=== PATIENT | female | born 1950 | race Caucasian/White ===

== ENCOUNTER 2024-04-07 13:14 | Outpatient (CLI) | payer MEDICARE, BC ==
[2024-04-07 14:13] LABS: #Basophils 0.01 10x3/uL (0.0-0.2); #Eosinphils 0.12 10x3/uL (0.0-0.5); #Monocytes 0.34 10x3/uL (0.0-1.1); #Neutrophils 3.53 10x3/uL (1.5-8.4); %Basophils 0.2 % (0.0-2.0); %Eosinophils 2.2 % (0.0-6.0); %Lymphocytes 25.9 % (18.0-47.0); %Monocytes 6.3 % (0.0-10.0); %Neutrophils 65.2 % (40.0-75.0); Hematocrit 38.7 % (34.9-44.5); Mean Corpuscular HGB CONC 36.2 g/dL (32.0-36.0); Mean Corpuscular Hemoglobin 32.8 pg (27.0-33.0); Mean Corpuscular Volume 90.6 fL (81.6-98.3); Mean Platelet Volume 8.5 fL (7.4-10.4); Platelet Count 248 10x3/uL (150-450); RBC Distribution Width 12.7 % (11.5-14.5); Red Blood Cell (RBC) Count 4.27 10x6/uL (3.90-5.03); White Blood Cell (WBC) Count 5.4 10x3/uL (3.5-10.5)
[2024-04-07 14:21] LABS: Anion Gap 14 mmol/L (10-20); BUN (Urea Nitrogen) 17 mg/dL (9.8-20.1); Calc. Creatinine Clearance 0 mL/min (70-130); Calcium 9.5 mg/dL (7.8-10.44); Carbon Dioxide 23 mmol/L (23-31); Chloride 106 mmol/L (98-107); Estimated GFR 78; Glucose 96 mg/dL (83-110); Potassium 4.8 mmol/L (3.5-5.1); Sodium 138 mmol/L (136-145)
== END 2024-04-07 13:15 | disposition home or self-care (01) ==
LOC: LABBT 13:14
PROVIDERS: ATTEND Orthopaedic Surgery
DX: Z01.818 Encounter for other preprocedural examination (principal); M75.121 Complete rotator cuff tear or rupture of right shoulder, not specified as traumatic
CPT/HCPCS: 80048; 85025; 93005; 93010

== ENCOUNTER 2024-04-12 05:37 | Observation (INO) | payer MEDICARE, BC ==
[2024-04-07 13:35] VITALS: BMI 27.4
[2024-04-12] MEDS ORDERED: Sodium Chloride 0.9% 100 ML ONE ×2 (06:29→06:53)
[2024-04-12] MEDS ORDERED: Tranexamic Acid 1,000 MG/10 ML VIAL ONE (06:29)
[2024-04-12] MEDS ORDERED: Vancomycin 1 GM/200 ML (FROZEN) BAG ONE (06:30)
[2024-04-12] MEDS ORDERED: fentaNYL 50 mcg/mL 1 mL Vial ONE (06:39)
[2024-04-12] MEDS ORDERED: Scopolamine 1 mg/72 hour Patch ONE (06:40)
[2024-04-12] MEDS ORDERED: Midazolam HCl 2 mg/2 ml Vial ONE (06:40)
[2024-04-12] MEDS ORDERED: Bupivacaine PF 0.5% 30 ML VIAL ONE (06:45)
[2024-04-12] MEDS ORDERED: Lidocaine 1% (PF) 30 ML VIAL ONE (06:45)
[2024-04-12] MEDS ORDERED: CEFAZOLIN 2 GM VIAL ONE (06:53)
[2024-04-12] MEDS ORDERED: Ondansetron PF 4 MG/2 ML Vial ONE (07:40)
[2024-04-12] MEDS ORDERED: Lidocaine 1% PF 5 ML VIAL ONE (07:40)
[2024-04-12] MEDS ORDERED: Phenylephrine 10 MG/ML VIAL ONE (07:40)
[2024-04-12] MEDS ORDERED: Rocuronium Bromide 10 MG/ML (10ML VIAL) ONE (07:40)
[2024-04-12] MEDS ORDERED: Dexamethasone 20 MG/5 ML VIAL ONE (07:40)
[2024-04-12] MEDS ORDERED: PROPOFOL 20 ML ONE (07:40)
[2024-04-12] MEDS ORDERED: fentaNYL PF 100 MCG/2 ML SYRINGE ONE ×2 (07:41→13:08)
[2024-04-12] MEDS ORDERED: ePHEDrine Sulfate 50 MG/10 ML VIAL ONE (08:05)
[2024-04-12] MEDS ORDERED: Glycopyrrolate 0.2 MG/ML 5 ML SYRINGE ONE (08:12)
[2024-04-12] MEDS ORDERED: NEOSTIGMINE 3 MG/3 ML SYRINGE ONE (09:11)
[2024-04-12] MEDS ORDERED: Bupivacaine HCl 0.5%/Epinephrine 1:200,000/PF 30 ml Vial ONE (09:19)
[2024-04-12] MEDS ORDERED: Promethazine HCl 25 MG/ML VIAL IM PRN ×2 (09:56→10:00)
[2024-04-12] MEDS ORDERED: Ondansetron HCl/PF 4 MG/2 ML Vial IVP PRN (09:56)
[2024-04-12] MEDS ORDERED: fentaNYL 50 mcg/mL 1 mL Vial SLOW IVP PRN (09:57)
[2024-04-12] MEDS ORDERED: Zolpidem Tartrate 5 MG TAB PO PRN ×2 (10:00→11:16)
[2024-04-12] MEDS ORDERED: Ondansetron PF 4 MG/2 ML Vial IVP PRN ×2 (10:00→11:16)
[2024-04-12] MEDS ORDERED: Ropivacaine 0.2% 550 ML 550 ML NERVE BLCK SCH (10:00)
[2024-04-12] MEDS ORDERED: Milk Of Magnesia 30 ML UDCUP PO PRN (11:16)
[2024-04-12] MEDS ORDERED: Ondansetron ODT 4 MG TAB PO PRN (11:16)
[2024-04-12] MEDS ORDERED: Bisacodyl 10 MG SUPP PR PRN (11:16)
[2024-04-12] MEDS ORDERED: Methocarbamol 500 MG TAB PO PRN (11:16)
[2024-04-12] MEDS ORDERED: Acetaminophen 325 MG TAB PO PRN (11:16)
[2024-04-12] MEDS ORDERED: diphenhydrAMINE 50 MG CAP PO PRN (11:16)
[2024-04-12] MEDS: Famotidine 20 MG TAB PO SCH ×2 (12:33→20:40)
[2024-04-12] MEDS: Sodium Chloride 0.9% 1,000 ML IV SCH (12:34)
[2024-04-12] MEDS ORDERED: Calcium Chloride 1 GM/10 ML Abboject SYRINGE ONE (15:01)
[2024-04-12] MEDS ORDERED: PHENYLEPHRINE-NS 100 MCG/ML 10 ML SYRINGE ONE (15:33)
[2024-04-12] MEDS: CEFAZOLIN 2 GM in Sodium Chloride 0.9% 100 ML IVPB SCH (15:35)
[2024-04-12] MEDS: Naproxen 500 MG TAB PO SCH (20:36)
[2024-04-12] MEDS: traZODone HCl 50 MG TAB PO SCH (20:36)
[2024-04-12] MEDS: Magnesium Oxide 250 MG TAB PO SCH (20:36)
[2024-04-12] MEDS: DULoxetine 30 MG CAP PO SCH (20:39)
[2024-04-13] MEDS: chlordiazePOXIDE HCl 5 MG CAP PO SCH (08:55)
[2024-04-13] MEDS ORDERED: DULoxetine 30 MG CAP PO SCH (09:00)
[2024-04-13 12:06] VITALS: BP 129/88; TEMP 98
== END 2024-04-13 11:45 | disposition home or self-care (01) ==
LOC: SDC 05:37 → SURG A 11:40
PROVIDERS: ADMIT Orthopaedic Surgery; ATTEND Orthopaedic Surgery
PROC: 0RRJ0JZ Replacement of Right Shoulder Joint with Synthetic Substitute, Open Approach (ICD-10-PCS; principal; 2024-04-12)
PROC: 0LS30ZZ Reposition Right Upper Arm Tendon, Open Approach (ICD-10-PCS; 2024-04-12)
DX: M75.121 Complete rotator cuff tear or rupture of right shoulder, not specified as traumatic (principal); F41.9 Anxiety disorder, unspecified; F32.A Depression, unspecified; E78.00 Pure hypercholesterolemia, unspecified; Z90.49 Acquired absence of other specified parts of digestive tract; Z79.899 Other long term (current) drug therapy
CPT/HCPCS: 23430; 23472; 64415; 97110; 97116 ×2; 97530; 97535; A4306; C1713 ×5; C1776 ×3; J0665; J1100; J2001; J2250; J2371; J2405; J2704; J2795; J3010; J3490 ×2; J7050; J3370-JW